=== PATIENT | female | born 1945 | race Caucasian/White ===

== ENCOUNTER 2016-11-25 14:00 | Inpatient (IN) | payer MEDICARE, MEDICAID ==
--- NOTE | 2016-11-25 14:03 | ED Physician Chart ---
Chief Complaint/HPI - Patient Information Date Seen:: 11/25/16 Time Seen:: 14:03 Chief Complaint:: wheezing History of Present Illness:: 71-year-old female with history of dementia, [facility] with acute, moderate, wheezing since this morning. Has associated increased work of breathing and decreased oral intake. History limited patient has underlying dementia cannot provide history History provided by EMS and EMS run sheet Allergies:: Allergies Allergy/AdvReac Type Severity Reaction Status Date / Time No Known Allergies Allergy Verified 08/20/16 19:37 Historian:: Patient Review:: Nurse's Note Reviewed Review of Systems - Review of Systems Other: Complete system review otherwise unremarkable except as noted in history of present illness. Past Medical History - Past Medical History Past Medical History: Asthma/COPD, Dementia Family History: None Social History: Non Smoker, No Alcohol, No Drug Use, Care Facility Surgical History: None Psychiatricy History: None Medication: Reviewed Family Medical History - Family Member Mother History Unknown: Yes Physical Exam - Physical Examination Other:: INITIAL VITAL SIGNS: Reviewed by me GENERAL: Alert and interactive. Slight respiratory distress HEAD: Head is normocephalic and atraumatic EYES: EOMI. PERRL. No scleral icterus. No conjunctival injection ENT: Moist mucous membranes. NECK: Supple. No masses. Full range of motion RESPIRATORY: Slightly tachypneic with bilateral expiratory wheezing. CV: Regular rate and rhythm. No murmurs, rubs, or gallops ABDOMEN: Soft, non-distended, non-tender. No guarding. No rebound. No masses. EXTREMITIES: No deformity. No cyanosis. No edema. SKIN: Warm and dry. No obvious rashes. NEUROLOGIC: Alert and oriented. Face is symmetric. Speech is normal. Moves all extremities equally. Motor and sensory distally intact. ED Septic Shock - . Is Septic Shock (SBP<90, OR Lactate>4 mmol\L) present?: No Reassessment (Disposition) - Reassessment Reassessment:: Patient having acute asthma exacerbation. Gave IV Solu-Medrol and breathing treatment. Covered with the prophylactic antibiotics. Also has failure to thrive. Underlying dementia and makes it difficult to assess the patient completely. Discussed case with admitting physician who will admit the patient for further workup and treatment. Reassessment Condition:: Improved - Diagnosis Diagnosis:: Acute wheezing and shortness of breath due to asthma exacerbation Acute failure to thrive - Patient Disposition Discharge/Transfer:: Acute Care w/in this hosp Admitted to:: Med/Surg Admitting Medical Physician:: Reggie Ann Time:: 15:51 Condition at Disposition:: Stable
[2016-11-25] MEDS ORDERED: cefTRIAXone 1 GM in Sodium Chloride 0.9% 50 ML IV ONE (14:09)
[2016-11-25] MEDS ORDERED: Albuterol/Ipratropium Neb 3 ML AERS HHN ONE ×2 (14:09→14:50)
--- NOTE | 2016-11-25 14:38 | Diagnostic Imaging Report ---
CHEST X-RAY: AP view INDICATION: Shortness of breath, wheezing COMPARISON: None FINDINGS: Exam is limited as patient's head obscures the upper hemithorax. No focal consolidation or pleural effusions. Heart size normal. Atherosclerosis is noted. Spinal scoliosis is noted with degenerative changes of the spine noted. IMPRESSION: Limited exam as patient's head obscures the upper hemithorax. Otherwise no focal consolidation identified. Atherosclerotic vascular disease. Degenerative changes of the spine with scoliosis.
[2016-11-25 14:58] LABS: % BASOPHILS 0.3 % (0.0-2.0); % EOSINOPHILS 3.4 % (0.0-5.0); % LYMPHOCYTES 23.5 % (20.0-50.0); % MONOCYTES 7.7 % (2.0-10.0); % NEUTROPHILS 65.1 % (40.0-80.0); MEAN CELL VOLUME 86.1 fl (81-100); MEAN CORPUSCULAR HEMOGLOBIN 28.9 pg (27.0-31.0); MEAN CORPUSCULAR HGB CONC 33.6 pg (28.0-36.0); MEAN PLATELET VOLUME 7.4 fl; NEUTROPHILE ABSOLUTE 4.3 Th/cmm (1.8-8.0); PLATELET COUNT 274 Th/cmm (150-400); RED BLOOD COUNT 4.85 Mil/cmm (3.80-5.20); RED CELL DISTRIBUTION WIDTH 14.5 % (11.5-20.0)
[2016-11-25 15:02] LABS: INR 0.92 (0.5-1.4); PROTHROMBIN TIME (TEST) 9.6 SECONDS (9.5-11.5)
[2016-11-25 15:08] LABS: ALB/GLOB RATIO 1.3 (1.0-1.8); ALKALINE PHOSPHATASE 95 U/L (34-104); ANION GAP 7.9 (7.0-16.0); BILIRUBIN,TOTAL 0.3 mg/dL (0.3-1.0); BUN - UREA NITROGEN 17 mg/dL (7-25); BUN/CREATININE RATIO 21.3; CALCIUM SERUM 10.3 mg/dL (8.6-10.3); CARBON DIOXIDE 29.2 mEq/L (21.0-31.0); CHLORIDE 103 mEq/L (98-107); CREATININE - SERUM 0.8 mg/dL (0.6-1.2); GLUCOSE 139 mg/dL (70-105); POTASSIUM SERUM 4.1 mEq/L (3.5-5.1); SGOT 21 U/L (13-39); SGPT/ALT 12 U/L (7-52); SODIUM SERUM 136 mEq/L (136-145); WHITE BLOOD COUNT 6.5 Th/cmm (4.8-10.8)
[2016-11-25 15:09] LABS: HEMATOCRIT 41.7 % (35.0-45.0)
[2016-11-25 15:36] LABS: URINE BACTERIA FEW /hpf (NONE SEEN); URINE BILIRUBIN NEGATIVE (NEGATIVE); URINE BLOOD NEGATIVE (NEGATIVE); URINE COLOR YELLOW; URINE EPITHELIAL CELLS RARE /lpf (FEW); URINE GLUCOSE (UA) NEGATIVE (NEGATIVE); URINE KETONE NEGATIVE (NEGATIVE); URINE PH 7.5; URINE PROTEIN NEGATIVE (NEGATIVE); URINE RBC NONE SEEN /hpf (0-5); URINE UROBILINOGEN 0.2 E.U./dL (0.2 - 1.0); URINE WBC 0-2 /hpf (0-5)
[2016-11-25] MEDS ORDERED: Maalox 30 mL Cup PO PRN (19:27)
[2016-11-25] MEDS ORDERED: Magnesium Hydroxide (MOM) 30 mL UDC PO PRN (19:27)
[2016-11-25] MEDS ORDERED: guaiFENesin 200 MG/10 ML UDC PO PRN (19:28)
--- NOTE | 2016-11-25 19:35 | Admit Criteria Form ---
Admit Criteria Forms - Admit Criteria Diagnosis: ASTHMA Clinical Indications for Admission to Inpatient Care (Place 'X' for any and all applicable criteria): Admission is indicated for ANY ONE of the following (1)(2)(3)(4)(5): [ ]I. Absent or markedly diminished breath sounds (silent chest) [ ]II. Oxygen saturation < 92% [ ]III. PaCO2 = / > 42 mm Hg (5.6 kPa) [ ]IV. Peak expiratory flow rate < 40% of predicted or personal best after treatment. [ ]V. Peak expiratory flow rate < 33% of predicted or personal before after treatment [ ]. Change in mental status [ ]VII. Ventilatory support required [ ]VIII. PaO2 < 60 mm Hg (8.0 kPa) [ ]IX. Cyanosis [ ]X. Cardiac dysrhythmia (e.g., bradycardia) [ ]XI. Hemodynamic instability [ ]XII. Radiographic evidence of complication requiring inpatient treatment (e.g., pneumonia, pneumothorax) [X]XIII. Inpatient admission required rather than observation care (also use Asthma: Observation Care guideline as appropriate) because of ANY ONE of the following: [X]a) Respiratory finding that is severe or persistent (eg, dyspnea, tachypnea, accessory muscle use) [ ]b) Airflow measurements less than 60% of predicted or personal best that persist (e.g., over 24 hours) or worsen despite treatments [ ]c) Supplemental oxygen or respiratory treatments for over 24 hours that are performable only in acute inpatient setting [ ]d) Other condition, treatment or monitoring requiring inpatient admission. Extended stay beyond goal length of stay may be needed for (26)(27)(28): [ ]a) Severe respiratory failure (23) (29) (30) [ ]b) Secondary causes and complications (25) [ ]c) Status asthmaticus [ ]d) Chronic obstructive asthma [ ]e) Older patients (29) [ ]f) Slow resolution [ ]g) Clinically significant exacerbation of comorbidities (eg, prema. heart failure, atrial fibrillation) The original [employer] content created by [employer] has been revised. The portions of the content which have been revised are identified through the use of italic text or in bold, and [employer] has neither reviewed nor approved the modified material. All other unmodified content is copyright [facility] Please see references footnoted in the original [facility] edition 2016 Admit Criteria Met?: Yes
[2016-11-25] MEDS: methylPREDNISolone SS 40 mg Vial IVP SCH (21:00)
[2016-11-25] MEDS: Ipratropium Neb 0.5 mg/2.5 mL UD HHN SCH (21:16)
[2016-11-25] MEDS: Albuterol Nebulizer 2.5mg/3mL HHN SCH (21:16)
[2016-11-25] MEDS: D5-0.45NS 1,000 ML IV SCH (21:26)
[2016-11-26] MEDS: methylPREDNISolone SS 40 mg Vial IVP SCH (07:55)
[2016-11-26] MEDS: Ipratropium Neb 0.5 mg/2.5 mL UD HHN SCH ×4 (08:35→19:18)
[2016-11-26] MEDS: Albuterol Nebulizer 2.5mg/3mL HHN SCH ×4 (08:35→19:18)
--- NOTE | 2016-11-26 09:19 | Diagnostic Imaging Report ---
CHEST X-RAY: AP view INDICATION: Shortness of breath COMPARISON: Chest x-ray 11/25/2016 FINDINGS: Chronic lung changes are seen with no focal consolidation or effusions. Heart size is normal. Tortuous senescent aorta is noted with atherosclerosis. Degenerative changes of the spine are noted. IMPRESSION: Chronic lung changes with possible COPD. No focal consolidation identified. Tortuous senescent aorta with atherosclerotic vascular disease.
[2016-11-26] MEDS: D5-0.45NS 1,000 ML IV SCH (09:33)
[2016-11-26] MEDS: Multivitamin w/ Minerals Tab PO SCH (09:33)
--- NOTE | 2016-11-26 17:02 | History & Physical ---
CHIEF COMPLAINT: Wheezing and shortness of breath. HISTORY OF PRESENT ILLNESS: This is a 71-year-old female with history of osteoarthritis, osteoporosis, bilateral hearing deficit was admitted from nursing facility secondary to wheezing for 1 day and increasing shortness of breath, using her ____ muscle. The patient was seen through the Emergency Room. PAST MEDICAL HISTORY: As mentioned in history present illness. PAST SURGICAL HISTORY: Denies surgeries in the past. ALLERGIES: No known drug allergies. MEDICATIONS: The patient is on Tylenol, ____, albuterol, Namenda, meclizine, Zofran. FAMILY HISTORY: Noncontributory. SOCIAL HISTORY: Nonsmoker, nondrinker. [place] The patient has 2 daughters. REVIEW OF SYSTEMS: GENERAL: Complains of not feeling well. HEENT: No blurred vision. LUNGS: ____ COPD. Chest x-ray was suggestive, history of asthma. HEART: No hypertension or coronary artery disease. ABDOMEN: No nausea, vomiting, abdominal pain. GENITOURINARY: The patient denies increased dysuria. NEUROLOGIC: No headaches or seizure. PSYCHIATRIC: As stated above. PHYSICAL EXAMINATION: VITAL SIGNS: Blood pressure 120/76, respirations 18, pulse 78, ____. GENERAL: This is an elderly female, appears stated age, mildly obese. NECK: Supple. No mass. LUNGS: Equal breath sounds, otherwise clear to auscultation. HEART: Regular rate and rhythm with systolic ejection murmur. ABDOMEN: Soft, nontender. EXTREMITIES: Positive excoriations. NEUROLOGIC: Limited. LABORATORY DATA: WBC was 6.5, hemoglobin 14, platelets 274. INR 0.9. Sodium 136, potassium ____, ____, creatinine 0.7, blood sugar 139. UA is negative. ASSESSMENT AND PLAN: Acute asthma exacerbation, acute chronic obstructive pulmonary disease exacerbation, acute bronchitis, bilateral hearing deficit, osteoarthritis, osteoporosis, dementia, obesity. We will continue the patient on IV antibiotics and also continue oxygen and bronchodilator treatment. I will review chest x-ray. We will send blood cultures as well as sputum ____ and C and S. We will continue and monitor the patient closely. JOB# [id number]
[2016-11-27] MEDS: D5-0.45NS 1,000 ML IV SCH ×2 (06:44→21:56)
[2016-11-27 07:06] LABS: HEMOGLOBIN 13.1 gm/dL (11.7-16.1); MEAN CELL VOLUME 84.6 fl (81-100); MEAN CORPUSCULAR HEMOGLOBIN 29.8 pg (27.0-31.0); MEAN CORPUSCULAR HGB CONC 35.2 pg (28.0-36.0); MEAN PLATELET VOLUME 7.8 fl; PLATELET COUNT 261 Th/cmm (150-400); RED BLOOD COUNT 4.41 Mil/cmm (3.80-5.20); RED CELL DISTRIBUTION WIDTH 14.6 % (11.5-20.0)
[2016-11-27 07:20] LABS: ANION GAP 6.4 (7.0-16.0); BUN - UREA NITROGEN 25 mg/dL (7-25); BUN/CREATININE RATIO 41.7; CALCIUM SERUM 10.3 mg/dL (8.6-10.3); CHLORIDE 103 mEq/L (98-107); CREATININE - SERUM 0.6 mg/dL (0.6-1.2); GLUCOSE 164 mg/dL (70-105); MAGNESIUM 1.7 mg/dL (1.9-2.7); POTASSIUM SERUM 4.4 mEq/L (3.5-5.1); SODIUM SERUM 132 mEq/L (136-145)
[2016-11-27 07:55] LABS: HEMATOCRIT 37.3 % (35.0-45.0); WHITE BLOOD COUNT 16.9 Th/cmm (4.8-10.8)
[2016-11-27 08:00] LABS: TSH 0.12 uIU/ml (0.34-5.60)
[2016-11-27] MEDS: Multivitamin w/ Minerals Tab PO SCH (08:31)
[2016-11-27 08:40] LABS: BAND NEUTROPHILE 4 % (0-10); NEUTROPHILS 92 % (40-80); PLATELET ESTIMATE ADEQUATE (NORMAL); PLATELET MORPHOLOGY NORMAL (NORMAL); TOTAL CELLS COUNTED 100
--- NOTE | 2016-11-27 08:52 | Diagnostic Imaging Report ---
Portable chest x-ray HISTORY: Pneumonia Compared with prior exam of November 26, 2016, no focal pulmonary processes are seen. Atherosclerotic calcification seen in the aorta. No hilar or mediastinal abnormalities. Scoliosis and degenerative changes noted to the spine. IMPRESSION: 1. No acute focal pulmonary processes 2. Atherosclerotic vascular changes
[2016-11-27] MEDS: Albuterol Nebulizer 2.5mg/3mL HHN SCH ×4 (09:11→19:48)
[2016-11-27] MEDS: Ipratropium Neb 0.5 mg/2.5 mL UD HHN SCH ×4 (09:12→19:48)
--- NOTE | 2016-11-27 15:13 | Internal Medicine Prog Note ---
Internal Medicine Subjective - Subjective Patient seen and examined:: with staff, chart reviewed Patient is:: awake, verbal, interactive Patient Complaints of:: congestion Per staff patient is:: no episodes of fall, eating well Internal Medicine Objective - Results Result Diagrams: 11/27/16 06:20 11/27/16 06:20 Recent Labs: Laboratory Last Values WBC 16.9 Th/cmm (4.8-10.8) H D 11/27/16 06:20 RBC 4.41 Mil/cmm (3.80-5.20) 11/27/16 06:20 Hgb 13.1 gm/dL (11.7-16.1) 11/27/16 06:20 Hct 37.3 % (35.0-45.0) D 11/27/16 06:20 MCV 84.6 fl (81-100) 11/27/16 06:20 MCH 29.8 pg (27.0-31.0) 11/27/16 06:20 MCHC Differential 35.2 pg (28.0-36.0) 11/27/16 06:20 RDW 14.6 % (11.5-20.0) 11/27/16 06:20 Plt Count 261 Th/cmm (150-400) 11/27/16 06:20 MPV 7.8 fl 11/27/16 06:20 Neutrophils % 65.1 % (40.0-80.0) 11/25/16 14:33 Band Neutrophils % 4 % (0-10) 11/27/16 06:20 Lymphocytes % 23.5 % (20.0-50.0) 11/25/16 14:33 Monocytes % 7.7 % (2.0-10.0) 11/25/16 14:33 Eosinophils % 3.4 % (0.0-5.0) 11/25/16 14:33 Basophils % 0.3 % (0.0-2.0) 11/25/16 14:33 Neutrophils (Manual) 92 % (40-80) H 11/27/16 06:20 Lymphocytes 3 % (20-50) L 11/27/16 06:20 Monocytes 1 % (2-10) L 11/27/16 06:20 Platelet Estimate ADEQUATE (NORMAL) 11/27/16 06:20 Platelet Morphology NORMAL (NORMAL) 11/27/16 06:20 RBC Morph Micro Appear NORMAL (NORMAL) 11/27/16 06:20 PT 9.6 SECONDS (9.5-11.5) 11/25/16 14:33 INR 0.92 (0.5-1.4) 11/25/16 14:33 PTT (Actin FS) 20.7 SECONDS (26.0-38.0) L 11/25/16 14:33 Sodium 132 mEq/L (136-145) L 11/27/16 06:20 Potassium 4.4 mEq/L (3.5-5.1) 11/27/16 06:20 Chloride 103 mEq/L (98-107) 11/27/16 06:20 Carbon Dioxide 27.0 mEq/L (21.0-31.0) 11/27/16 06:20 Anion Gap 6.4 (7.0-16.0) L 11/27/16 06:20 BUN 25 mg/dL (7-25) 11/27/16 06:20 Creatinine 0.6 mg/dL (0.6-1.2) 11/27/16 06:20 Est GFR ( Amer) TNP 11/27/16 06:20 Est GFR (Non-Af Amer) TNP 11/27/16 06:20 BUN/Creatinine Ratio 41.7 11/27/16 06:20 Glucose 164 mg/dL (70-105) H 11/27/16 06:20 Whole Bld Lactic Acid 1.87 mmol/L (0.60-1.99) 11/25/16 14:33 Calcium 10.3 mg/dL (8.6-10.3) 11/27/16 06:20 Magnesium 1.7 mg/dL (1.9-2.7) L 11/27/16 06:20 Total Bilirubin 0.3 mg/dL (0.3-1.0) 11/25/16 14:33 AST 21 U/L (13-39) 11/25/16 14:33 ALT 12 U/L (7-52) 11/25/16 14:33 Alkaline Phosphatase 95 U/L (34-104) 11/25/16 14:33 Ammonia 37 umol/L (16-53) 11/27/16 06:20 Creatine Kinase 27 U/L (30-223) L 11/25/16 14:33 B-Natriuretic Peptide 152.0 pg/mL (5.0-100.0) H 11/27/16 06:20 Total Protein 6.8 gm/dL (6.0-8.3) 11/25/16 14:33 Albumin 3.9 gm/dL (3.7-5.3) 11/25/16 14:33 Globulin 2.9 gm/dL 11/25/16 14:33 Albumin/Globulin Ratio 1.3 (1.0-1.8) 11/25/16 14:33 TSH 0.12 uIU/ml (0.34-5.60) L 11/27/16 06:20 Urine Source CATH 11/25/16 14:25 Urine Color YELLOW 11/25/16 14:25 Urine Clarity CLEAR (CLEAR) 11/25/16 14:25 Urine pH 7.5 11/25/16 14:25 Ur Specific Ethel 1.015 (1.005-1.030) 11/25/16 14:25 Urine Protein NEGATIVE mg/dL (NEGATIVE) 11/25/16 14:25 Urine Glucose (UA) NEGATIVE mg/dL (NEGATIVE) 11/25/16 14:25 Urine Ketones NEGATIVE mg/dL (NEGATIVE) 11/25/16 14:25 Urine Blood NEGATIVE (NEGATIVE) 11/25/16 14:25 Urine Nitrate NEGATIVE (NEGATIVE) 11/25/16 14:25 Urine Bilirubin NEGATIVE (NEGATIVE) 11/25/16 14:25 Urine Urobilinogen 0.2 E.U./dL (0.2 - 1.0) 11/25/16 14:25 Ur Leukocyte Esterase NEGATIVE (NEGATIVE) 11/25/16 14:25 Urine RBC NONE SEEN /hpf (0-5) 11/25/16 14:25 Urine WBC 0-2 /hpf (0-5) 11/25/16 14:25 Ur Epithelial Cells RARE /lpf (FEW) 11/25/16 14:25 Urine Bacteria FEW /hpf (NONE SEEN) 11/25/16 14:25 - Physical Exam Vitals and I&O: Vital Signs Temp 97.1 F 11/27/16 12:17 Pulse 73 11/27/16 14:47 Resp 18 11/27/16 14:47 BP 117/71 11/27/16 12:17 Pulse Ox 94 11/27/16 14:47 Intake & Output 11/26/16 11/27/16 11/27/16 18:59 06:59 18:59 Intake Total 958.75 1150 Balance 958.75 1150 Intake: Intake, IV Amount 958.75 1050 Cefepime 1 gm In Dextrose 50 50 5% 50 ml @ 100 mls/hr IV Q12H [facility] Rx#:[id number] D5-0.45NS 1,000 ml @ 75 908.75 1000 mls/hr IV .[id number] [facility] Rx #:[id number] Oral 100 Other: Stool Characteristics Soft Soft Active Medications: Current Medications Acetaminophen (Tylenol) 650 mg PO Q4HR PRN PRN Reason: Pain or Fever >101 Stop: 01/24/17 19:27 Al Hydrox/Mg Hydrox/Simethicone (Maalox) 30 ml PO Q4H PRN PRN Reason: GI DISTRESS Albuterol Sulfate (Albuterol 2.5mg/3ml Neb Ud) 2.5 mg HHN QIDRT [facility] Stop: 01/25/17 10:59 Last Admin: 11/27/16 14:47 Dose: 2.5 mg Citalopram Hydrobromide (Celexa) 20 mg PO DAILY CHITO PRN Reason: Protocol Stop: 01/25/17 08:59 Last Admin: 11/27/16 08:31 Dose: 20 mg Donepezil HCl (Aricept) 5 mg PO HS [facility] Stop: 01/24/17 20:59 Last Admin: 11/26/16 21:26 Dose: 5 mg Guaifenesin (Robitussin) 200 mg PO Q4HR PRN PRN Reason: Cough or Congestion Stop: 01/24/17 19:27 Heparin Sodium (Porcine) (Heparin) 5,000 units SUBQ Q12HR [facility] Stop: 01/24/17 20:59 Last Admin: 11/27/16 08:30 Dose: 5,000 units Cefepime HCl 1 gm/ Dextrose 50 mls @ 100 mls/hr IV Q12H [facility] Stop: 01/24/17 19:29 Last Admin: 11/27/16 06:43 Dose: 100 mls/hr Dextrose/Sodium Chloride (D5-0.45ns) 1,000 mls @ 75 mls/hr IV .[id number] [facility] Stop: 01/24/17 19:29 Last Admin: 11/27/16 06:44 Dose: 75 mls/hr Ipratropium [place] (Atrovent Neb 0.5mg/2.5ml) 0.5 mg HHN QIDRT [facility] Stop: 01/25/17 10:59 Last Admin: 11/27/16 14:47 Dose: 0.5 mg Magnesium Hydroxide (Milk Of Magnesia) 30 ml PO DAILY PRN PRN Reason: Constipation Stop: 01/24/17 19:26 Meclizine HCl (Antivert) 25 mg PO DAILY PRN PRN Reason: Nausea / Vomiting Stop: 01/24/17 19:27 Memantine (Namenda) 5 mg PO DAILY [facility] Stop: 01/25/17 08:59 Last Admin: 11/27/16 08:31 Dose: 5 mg Ondansetron HCl (Zofran) 4 mg IV Q8H PRN PRN Reason: Nausea / Vomiting Stop: 01/24/17 19:27 General: alert HEENT: NC/AT, PERRLA Neck: Supple, No JVD Lungs: congested, rales Cardiovascular: RRR, Normal S1, Normal S2 Abdomen: soft non-tender, globular Extremities: excoriation Neurological: no change Internal Medicine Assmt/Plan - Assessment Assessment: acute asthma exac acute bronchitis dementia obesity leukocytosis hyponatremia - Plan Plan: cont on iv abx monitor wbc o2 bronchodilator dw rn Nutritional Asmnt/Malnutr-PDOC - Dietary Evaluation Malnutrition Findings (Please click <Entered> for more info): Nutritional Asmnt/Malnutrition Start: 11/26/16 13: 03 Text: Status: Complete Freq: Document 11/26/16 13:03 GSUN (Rec: 11/26/16 13:30 GSUN [email or web address]) Nutritional Asmnt/Malnutrition Patient General Information Nutritional Screening High Risk Screening Diagnosis ER: acute asthma exacerbation, acute failrue to thrive Pertinent Medical Hx/Surgical Hx ER: dementia, asthma/COPD Subjective Information 71year old female from SNF. Visited pt with daughter at bedside. Pt was able to answer simple questiosn with forgetfulness noted. Per ER notes, pt dx FTT and noted with decreased oral intake. CBW 143.7lb. Daughter reported pt usually with good appetite , possibly even gained weight since adm to SNF, unsure of CBW, aware that pt admitted due to decreased oral. Re- visited pt during lunch time, observed more than half meal untouched, asked pt, pt stated "I'm done." Current Diet Order/ Nutrition Support [facility] soft ground Pertinent Medications Maalox, D5, MOM, Solu-Medrol, Zofran Pertinent Labs 11/25: glucose 139H Nutritional Hx/Data Height 1.68 m Height (Calculated Centimeters) 167.6 Current Weight (lbs) 65.181 kg Weight (Calculated Kilograms) 65.2 Weight (Calculated Grams) 99484.2 [place] Body Weight 130 Weight Status Approriate GI Symptoms Usual diet at home Shawanda Soria: [facility] soft diet Skin Integrity/Comment: Dell 15. Skin intact. Current %PO Poor (25-49%) Estimated Nutritional Goals BEE in Kcals: Using Current wt Calories/Kcals/Kg CBW 143.7lb/65.3kg Kcals Calculated 1959kcal (30kcal/kg) Protein: Using Current wt Protein Calculated 65-78g (1-1.2g/kg) Fluid: ml 1959ml (1ml/kcal) Nutritional Problem 1. Problem Problem Inadequate oral food beverage intake related to Etiology possibly cognition, possibly lost of appetite, ER dx. FTT aeb Signs/Symptoms: ER noted decreased PO at SNF, observed lunch more than half untouched Intervention/Recommendation Comments 1. Continue with [facility] soft ground diet. Dx. FTT and poor PO intake noted, will monitor. Expected Outcomes/Goals Expected Outcomes/Goals 1. PO intake to meet at least 100% of nutritional needs, dx. FTT.
--- NOTE | 2016-11-28 04:57 | Consultation ---
The patient was seen, chart reviewed, and discussed with staff. HISTORY OF PRESENT ILLNESS: The patient is a 71-year-old female with a history of depression with psychosis and dementia, Alzheimer's type, known to myself for the past several years, currently admitted to the medical floor with underlying infection with elevated white count of 16.9. The patient was able to recognize me when I walked in the room today. She said she is feeling tired and still having some episodes where she feels anxious and depressed. The patient has been cooperative with staff. The patient has not been agitated. The patient is taking her medications. PAST PSYCHIATRIC HISTORY: Multiple hospitalizations, chronic history of depression. PAST MEDICAL HISTORY: As per Dr. Ann. PSYCHOSOCIAL HISTORY: The patient resides in [facility], and she requires complete care. Her daughter is usually involved and supportive. MENTAL STATUS EXAMINATION: The patient is in bed, oriented to person, knew she was in the hospital, and she is oriented to approximate time. Her speech is fluent, not pressured. Affect appears to be somewhat anxious and depressed. No auditory or visual hallucinations. No suicidal thoughts, limited insight. ASSESSMENT: Major depressive disorder, recurrent, moderate dementia, Alzheimer's type. PLAN: We will continue Celexa 20 mg daily. Continue supportive measures. Increase Aricept to 10 mg p.o. at bedtime. Use Ativan 0.5 mg p.o. b.i.d. p.r.n. anxiety. We will follow the patient while in the hospital. Thank you for the consultation. [facility]# [id number]
[2016-11-28 05:34] LABS: HEMATOCRIT 34.8 % (35.0-45.0); HEMOGLOBIN 11.9 gm/dL (11.7-16.1); MEAN CELL VOLUME 86.4 fl (81-100); MEAN CORPUSCULAR HEMOGLOBIN 29.5 pg (27.0-31.0); MEAN CORPUSCULAR HGB CONC 34.2 pg (28.0-36.0); MEAN PLATELET VOLUME 7.1 fl; PLATELET COUNT 239 Th/cmm (150-400); RED BLOOD COUNT 4.03 Mil/cmm (3.80-5.20); RED CELL DISTRIBUTION WIDTH 14.8 % (11.5-20.0)
[2016-11-28 05:37] LABS: WHITE BLOOD COUNT 11.9 Th/cmm (4.8-10.8)
[2016-11-28 06:25] LABS: NEUTROPHILS 92 % (40-80); PLATELET ESTIMATE ADEQUATE (NORMAL); TOTAL CELLS COUNTED 100
[2016-11-28] MEDS: Albuterol Nebulizer 2.5mg/3mL HHN SCH ×3 (07:05→15:11)
[2016-11-28] MEDS: Ipratropium Neb 0.5 mg/2.5 mL UD HHN SCH ×3 (07:05→15:11)
[2016-11-28] MEDS: Multivitamin w/ Minerals Tab PO SCH (08:46)
[2016-11-28 14:20] LABS: FOLIC ACID 11.2 ng/mL (>3.0)
--- NOTE | 2016-11-29 04:13 | Progress Notes ---
The patient was seen, discussed with staff, chart is reviewed. Still forgetful and confused though she was in hospital, thought she was 89 years old, the patient is slightly guarded, her Zyprexa was held upon admission to minimize any sedation. The patient is still with sad facial expression and depressive symptoms. We will increase Namenda to 5 mg p.o. b.i.d. We will continue Celexa 20 mg daily, restart Zyprexa at a smaller dose 2.5 mg p.o. at bedtime. The patient appears to be somewhat more paranoid and guarded. [facility]# [id number]
--- NOTE | 2017-02-02 21:29 | Discharge Summary ---
DATE OF DISCHARGE: 11/28/2016 CHIEF COMPLAINT: Wheezing and shortness of breath. FINAL DIAGNOSES: Acute asthma exacerbation, acute chronic obstructive pulmonary disease exacerbation, acute bronchitis ____ hearing deficit, osteoarthritis, osteoporosis, dementia and obesity. HISTORYOF PRESENT ILLNESS: This is a 72-year-old female with history of osteoarthritis, osteoporosis, hearing deficit who was admitted from nursing facility secondary to increased shortness of breath. The patient was seen in the Emergency Room and admitted for further management. PHYSICAL EXAMINATION: VITAL SIGNS: Blood pressure 112/64, respirations 18, pulse 80, temperature 98.6. GENERAL: Elderly female, appears her stated age. NECK: Supple. LUNGS: Equal breath sounds, few rhonchi. HEART: Regular rate and rhythm, systolic ejection murmur. ABDOMEN: Soft, nontender. EXTREMITIES: Positive excoriations. HOSPITAL COURSE: The patient was admitted to medical floor and continued on IV hydration and IV antibiotic ____ IV steroids. The patient's condition did improve. X-ray did improve. The patient was also referred to Psychiatry for further adjustment of her psychotropic medication. CONDITION ON DISCHARGE: Fair. DISCHARGE INSTRUCTIONS: The patient is to continue on oral antibiotic regimen as well as steroids in the nursing facility. JOB# [id number]
== END 2016-11-28 19:00 | DRG 872 ==
LOC: ER 14:00 → MSI 15:53
PROVIDERS: ADMIT Internal Medicine; ATTEND Internal Medicine
DX: A41.9 Sepsis, unspecified organism (principal); J44.0 Chronic obstructive pulmonary disease with (acute) lower respiratory infection; J45.901 Unspecified asthma with (acute) exacerbation; E87.1 Hypo-osmolality and hyponatremia; G30.9 Alzheimer's disease, unspecified; F33.1 Major depressive disorder, recurrent, moderate; F02.80 Dementia in other diseases classified elsewhere, unspecified severity, without behavioral disturbance, psychotic disturbance, mood disturbance, and anxiety; J44.1 Chronic obstructive pulmonary disease with (acute) exacerbation; J20.9 Acute bronchitis, unspecified; M19.90 Unspecified osteoarthritis, unspecified site; M81.0 Age-related osteoporosis without current pathological fracture; E66.9 Obesity, unspecified; R62.7 Adult failure to thrive; F29 Unspecified psychosis not due to a substance or known physiological condition; Z68.22 Body mass index [BMI] 22.0-22.9, adult
CPT/HCPCS: 36415-UA; 71010-TC; 80048-TC; 80053-TC; 81001-TC; 82140-TC; 82550-TC; 82607-90; 82746-90; 83605; 83735-TC; 83880-TC; 84443-TC; 85007-TC; 85025-TC; 85027-TC; 85610-TC; 85730-TC; 87070; 90779; 93005; 94640; 94760; 96375; J0692; J0696; J1644; J2920; J2930; J7613; Z7610

== ENCOUNTER 2017-04-06 08:34 | Emergency (ER) | payer MEDICARE, MEDICAID ==
--- NOTE | 2017-04-06 08:55 | ED Physician Chart ---
Chief Complaint/HPI - Patient Information Date Seen:: 04/06/17 Time Seen:: 08:45 Chief Complaint:: L forehead laceration. History of Present Illness:: Brought in by ambulance from nursing facility because pt sustained the above mentioned injury when she fell at about 4 am today. Pt c/o L frontal headahce and posterior neck pain. Pt states that she was getting up to go to the bathroom. She slipped and fell. No LOC. Pt denies any other bodily injury or pain. Pt has dementia and is not fully cooperative; thus, H & P are limited. Info is primarily from review of transfer documents. Last tetanus immunization is unknown. Allergies:: Allergies Allergy/AdvReac Type Severity Reaction Status Date / Time No Known Allergies Allergy Verified 08/20/16 19:37 Vitals:: see Nurse Note. Historian:: Patient, Medical Records (from transferring facility.) Family MD/PCP:: Dr. Storey LMP:: Postmenopausal. Review:: Nurse's Note Reviewed, Transfer documents Reviewed Review of Systems - Review of Systems General/Constitutional: Other (Pt does not cooperate fully for ROS.) Head: Headache Cardio Vascular: No chest pain Pulmonary: No SOB Musculoskeletal: No back pain, Other (posterior neck pain.) Past Medical History - Past Medical History Past Medical History: Asthma/COPD, PUD/GERD, Arthritis, Dementia (with Alzheimer 's Disease.), Other (Osteoporosis, chronic anemia) Family History: Other (Pt does not cooperate to provide info on FHx.) Social History: Care Facility, Other (Pt does not cooperate to ) Surgical History: other (Pt does not cooperate to provide info on Surgical Hx.) Psychiatricy History: Depression, Dementia Medication: Reviewed Family Medical History - Family Member Mother History Unknown: Yes Physical Exam - Physical Examination General/Constitutional: Awake, Well-developed, well-nourished, Alert, No distress, Non-toxic appearing Other Gen/Cons comments:: Breathes comfortably, speaks clearly, but is not fully cooperative. Other Head comments:: There is an approx. 2.5 cm transverse superficial laceration noticed at L forehead. No skull deformity or bony tapering detected. No active bleeding. Eyes: Lids, conjuctiva normal, PERRL, EOMI Skin: No rash, No ecchymosis, Well hydrated, No lymphadenopathy Other Skin comments:: see also Head exam. ENMT: External ears, nose nl, TM canals nl, Nasal exam nl, Oropharynx nl Other ENMT comments:: No hemoptympanus Neck: No JVD, No nuchal rigidity, No mass, No stridor Other Neck comments:: Mild tenderness at mid posterior aspect. Neck is supple. No gross deformity, erythema, ecchymosis or open wound. Respiratory: Nl effort/Exclusion, Clear to Auscultation, No Wheeze/Rhonchi/Rales Cardio Vascular: RRR, No murmur, gallop, rubs GI: No tenderness/rebounding/guarding, No organomegaly, No hernia, Normal BS's, Nondistended, No mass/bruits Other GI comments:: There is a well healed midline longitudinal surgical scar at upper abdomen above the umbilicus. : No CVA tenderness Extremities: No edema Other Extremities comments:: Both hips are nontender with good ROM. No leg length discrepancy. Pt can medially and laterally rotate both hips without difficulty. Neuro/Psych: Alert/oriented (knows her name and that she is in an ER.), Mood normal Other Neuro/Psych comments:: Spontaneous movements noticed in all 4 extremities. Pt does not cooperate for full neurological exam. Misc: normal gait, Normal back, No paraspinal tenderness Labs/Radiology/EKG Results - Lab Results Results: Laboratory Tests 04/06/17 04/06/17 04/06/17 09:37 09:37 09:37 WBC 9.6 RBC 4.66 Hgb 14.1 D Hct 41.7 D MCV 89.3 MCH 30.2 MCHC Differential 33.8 RDW 13.5 Plt Count 276 MPV 7.2 Neutrophils % 76.0 Lymphocytes % 14.1 L Monocytes % 7.7 Eosinophils % 1.8 Basophils % 0.4 PT 9.7 INR 0.93 PTT (Actin FS) 25.6 L Sodium 137 Potassium 4.0 Chloride 104 Carbon Dioxide 29.2 Anion Gap 7.8 BUN 23 Creatinine 0.6 Est GFR ( Amer) TNP Est GFR (Non-Af Amer) TNP BUN/Creatinine Ratio 38.3 Glucose 111 H Calcium 10.1 Total Bilirubin 0.4 AST 23 ALT 17 Alkaline Phosphatase 116 H Creatine Kinase 39 Troponin I Total Protein 6.7 Albumin 4.1 Globulin 2.6 Albumin/Globulin Ratio 1.6 04/06/17 09:37 WBC RBC Hgb Hct MCV MCH MCHC Differential RDW Plt Count MPV Neutrophils % Lymphocytes % Monocytes % Eosinophils % Basophils % PT INR PTT (Actin FS) Sodium Potassium Chloride Carbon Dioxide Anion Gap BUN Creatinine Est GFR ( Amer) Est GFR (Non-Af Amer) BUN/Creatinine Ratio Glucose Calcium Total Bilirubin AST ALT Alkaline Phosphatase Creatine Kinase Troponin I 0.01 Total Protein Albumin Globulin Albumin/Globulin Ratio - Radiology Results Results: CT head without contrast: Soft tissue injury of the left forehead. No evidence of an skull fracture. No evidence of an acute intracranial hemorrhage. Mild atrophy. Moderate supratentorial white matter disease which is nonspecific and may be due to chronic microvessel ischemia. Official report per Dr. Shimon Durbin , radiologist. CT cervical spine without contrast: No evidence of an acute fracture. Extensive multilevel degenerative changes. 3 mm posterior translation of the left lateral mass of C1 in relation to C2 which was also seen on prior exam and may be due to chronic degenerative etiology and/or positioning. 3 mm anterolisthesis of C3 on C4 and C7 on T1 likely due to underlying facet arthropathy. Atherosclerotic vascular disease. Heterogeneous thyroid gland. Ultrasound would further clarify. Official report per Dr. Shimon Durbin, radiologist. - EKG Interpretations EKG Time:: 09:10 Rate & Rhythm: NSR with VR 68 Comments:: NSSTT changes. Repeat EKG at 1309 NSR with VR 62. NSSTT changes. ED Septic Shock - . Is Septic Shock (SBP<90, OR Lactate>4 mmol\L) present?: No Reassessment (Disposition) - Reassessment Reassessment:: 1125 Pt has been repeatedly evaluated. Pt overall feels better without subjective complaint. Awaiting head CT report. Laceration repair: L forehead laceration approx. 2.5 cm in length. Pt was preped in usual sterile manner. Wound was cleansed with betadine, then it was well irrigated with sterile normal saline. Wound was explored. No foreign body was found. Wound was well approximated with Dermabond. Pt tolerated the procedure without immediate complication. 1320 Pt has been repeatedly evaluated. Pt remains stable. No new findings. EKG, lab, and CT findings have been reviewed with pt. Management plan has been discussed. Dr. Storey is to be contacted. 1440 Pt remains stable. No headache or neck pain. No chest pain or discomfort. No dyspnea. Case was discussed with Dr. Storey with pertinent H & P, EKG's, CT and lab findings reviewed. He decided that pt is to be transferred back to nursing care facility. He will resume care of pt there. Regarding the incidental findings on thyroid gland on cervical spine CT, he will make sure that pt to have outpatient work up and thyroid sonogram to be done as outpatient. 1448 Pt remains comfortable. Pt requests to be sent back to nursing facility now. Aftercare instructions have been given. Reassessment Condition:: Improved - Diagnosis Diagnosis:: Mechanical fall with cervical strain and L forehead laceration, s/p repair with Dermabond. Incidental findings of heterogenous thyroid gland on cervical CT, pending further outpatient work up per Dr. Storey. Dementia. - Aftercare/Follow up Instructions Aftercare/Follow-Up Instructions:: Refer to Discharge Instructions Notes:: Wear C-collar as directed. Keep L forehead wound clean and dry. May take Tylenol 500 mg tab one tab po q6h prn pain. Head Injury Instructions given. Wound care instructions given. Further care per Dr. Storey in nursing facility. Medication Prescribed:: None - Patient Disposition Discharge/Transfer:: Alf Care - SNF Accepting Physician:: Dr. Storey Transport Method:: BLS Time:: 15:00 Condition at Disposition:: Stable, Improved ED Discharge Plan - Patient Disposition Admit/Discharge/Transfer: Discharge/Transfered to SNF Condition at Disposition: Stable Instructions: Fall Prevention and Home Safety, [id number], Open Wound, Forehead, [id number], Cervical Sprain, [id number]
[2017-04-06 09:58] LABS: % BASOPHILS 0.4 % (0.0-2.0); % EOSINOPHILS 1.8 % (0.0-5.0); % LYMPHOCYTES 14.1 % (20.0-50.0); % MONOCYTES 7.7 % (2.0-10.0); MEAN CELL VOLUME 89.3 fl (81-100); MEAN CORPUSCULAR HEMOGLOBIN 30.2 pg (27.0-31.0); MEAN CORPUSCULAR HGB CONC 33.8 pg (28.0-36.0); MEAN PLATELET VOLUME 7.2 fl; NEUTROPHILE ABSOLUTE 7.3 Th/cmm (1.8-8.0); PLATELET COUNT 276 Th/cmm (150-400); RED BLOOD COUNT 4.66 Mil/cmm (3.80-5.20); RED CELL DISTRIBUTION WIDTH 13.5 % (11.5-20.0); WHITE BLOOD COUNT 9.6 Th/cmm (4.8-10.8)
[2017-04-06 10:02] LABS: HEMATOCRIT 41.7 % (35.0-45.0); HEMOGLOBIN 14.1 gm/dL (11.7-16.1)
[2017-04-06 10:07] LABS: INR 0.93 (0.5-1.4); PROTHROMBIN TIME (TEST) 9.7 SECONDS (9.5-11.5)
[2017-04-06 10:13] LABS: ALB/GLOB RATIO 1.6 (1.0-1.8); ALKALINE PHOSPHATASE 116 U/L (34-104); ANION GAP 7.8 (7.0-16.0); BILIRUBIN,TOTAL 0.4 mg/dL (0.3-1.0); BUN - UREA NITROGEN 23 mg/dL (7-25); BUN/CREATININE RATIO 38.3; CALCIUM SERUM 10.1 mg/dL (8.6-10.3); CARBON DIOXIDE 29.2 mEq/L (21.0-31.0); CHLORIDE 104 mEq/L (98-107); CREATININE - SERUM 0.6 mg/dL (0.6-1.2); GLUCOSE 111 mg/dL (70-105); SGOT 23 U/L (13-39); SGPT/ALT 17 U/L (7-52); SODIUM SERUM 137 mEq/L (136-145)
--- NOTE | 2017-04-06 11:00 | Diagnostic Imaging Report ---
Head CT without intravenous contrast Indication: Trauma Comparison: Head CT on 08/20/2016 Technique: Axial images were obtained from the vertex to the skull base without IV contrast. Coronal reconstructions were made. Total DLP: 640, CTDI33 FINDINGS: Images of the brain obtained without contrast demonstrate is no evidence of an acute hemorrhage. Mild atrophy is noted. Moderate supratentorial white matter disease is noted. The ventricles and basal cisterns are patent. No mass effect or midline shift. No evidence of a skull fracture. Soft tissue injury of the left forehead is noted. The visualized paranasal sinuses are clear. IMPRESSION: Soft tissue injury of the left forehead. No evidence of an skull fracture. No evidence of an acute intracranial hemorrhage. Mild atrophy. Moderate supratentorial white matter disease which is nonspecific and may be due to chronic microvessel ischemia.
--- NOTE | 2017-04-06 11:05 | Diagnostic Imaging Report ---
CT cervical spine without IV contrast HISTORY: CT cervical spine on 08/20/2016 COMPARISON: None Technique: Axial images were obtained from the skull base to the upper thoracic spine without IV contrast. Multiplanar reconstructions were made. Total DLP: 338, CTDI17.4 FINDINGS: Images of the cervical spine obtained without contrast demonstrate no evidence of an acute fracture. Extensive multilevel degenerative changes are seen with multilevel disc space loss of height advanced from C4 through C7. Advanced degenerative changes of the atlantodental articulation is noted. Again seen is 3 mm posterior translation of the left lateral mass of of C1 in relation to C2. There is 2 to 3 mm anterolisthesis of C3 on C4 and C7 on T1 likely due to facet arthropathy. No prevertebral soft tissue swelling. Heterogeneous thyroid gland is noted. Biapical lung scarring is noted. Atherosclerosis is noted. IMPRESSION: No evidence of an acute fracture. Extensive multilevel degenerative changes. 3 mm posterior translation of the left lateral mass of C1 in relation to C2 which was also seen on prior exam and may be due to chronic degenerative etiology and/or positioning. 3 mm anterolisthesis of C3 on C4 and C7 on T1 likely due to underlying facet arthropathy. Atherosclerotic vascular disease. Heterogeneous thyroid gland. Ultrasound would further clarify.
== END 2017-04-06 15:03 ==
LOC: ER 08:34
DX: S01.81XA Laceration without foreign body of other part of head, initial encounter (principal); S16.1XXA Strain of muscle, fascia and tendon at neck level, initial encounter; J45.909 Unspecified asthma, uncomplicated; J44.9 Chronic obstructive pulmonary disease, unspecified; K21.9 Gastro-esophageal reflux disease without esophagitis; W19.XXXA Unspecified fall, initial encounter; Y93.89 Activity, other specified; Y92.89 Other specified places as the place of occurrence of the external cause; Y99.8 Other external cause status
CPT/HCPCS: 12011; 36415-UA; 70450-TC; 72125-TC; 80053-TC; 82550-TC; 84484-TC; 85025-TC; 85610-TC; 93005; Z7610

== ENCOUNTER 2017-09-01 12:39 | Inpatient (IN) | payer MEDICARE, MEDICAID ==
[2017-09-01] MEDS ORDERED: cefTRIAXone 1 GM in Sodium Chloride 0.9% 50 ML IV ONE (13:39)
[2017-09-01] MEDS ORDERED: Acetaminophen 500 MG TAB PO ONE (13:43)
[2017-09-01] MEDS ORDERED: Guaifenesin DM 10 ML UDC PO ONE (13:45)
[2017-09-01 14:08] LABS: MANUAL DIFF REQUIRED? YES; MEAN CORPUSCULAR HEMOGLOBIN 30.5 pg (27.0-31.0)
[2017-09-01 14:12] LABS: HEMOGLOBIN 11.4 gm/dL (12-16); MEAN CORPUSCULAR HGB CONC 34.2 pg (28.0-36.0); MEAN PLATELET VOLUME 6.5 fl; RED BLOOD COUNT 3.74 Mil/cmm (3.80-5.20); RED CELL DISTRIBUTION WIDTH 13.2 % (11.5-20.0)
--- NOTE | 2017-09-01 14:23 | Diagnostic Imaging Report ---
Portable chest x-ray History: Cough The apical regions of the chest are obscured by the patient's overlying head. Allowing for portable technique the heart size is normal. No focal pulmonary parenchymal processes. No hilar or mediastinal abnormalities. Impression: No definite acute abnormalities
[2017-09-01 14:32] LABS: ANION GAP 9.2 (7.0-16.0); BUN - UREA NITROGEN 22 mg/dL (7-25); CALCIUM SERUM 9.4 mg/dL (8.6-10.3); CARBON DIOXIDE 28.6 mEq/L (21.0-31.0); CHLORIDE 99 mEq/L (98-107); CREATININE - SERUM 0.7 mg/dL (0.6-1.2); GLUCOSE 114 mg/dL (70-105); POTASSIUM SERUM 3.8 mEq/L (3.5-5.1); SODIUM SERUM 133 mEq/L (136-145)
[2017-09-01 14:42] LABS: WHITE BLOOD COUNT 21.6 Th/cmm (4.8-10.8)
[2017-09-01 14:43] LABS: HEMATOCRIT 33.3 % (41.0-60); PLATELET COUNT 471 Th/cmm (150-400)
[2017-09-01] MEDS ORDERED: Acetaminophen 500 MG TAB ONE (15:11)
[2017-09-01] MEDS ORDERED: Guaifenesin DM 10 ML UDC ONE (15:12)
[2017-09-01] MEDS ORDERED: Albuterol Nebulizer 2.5mg/3mL HHN PRN (15:28)
[2017-09-01] MEDS ORDERED: Mag Sulfate 2gm/50mL Premix 2 GM/50 ML BAG IV ONE ×2 (15:46→18:18)
--- NOTE | 2017-09-01 16:04 | ER Physician Documentation ---
DATE OF SERVICE: 09/01/2017 The patient was brought here because of cough and shortness of breath. PRIMARY CARE PHYSICIAN: Dr. Reggie Ann EMERGENCY ROOM PHYSICIAN: Dr. Mode Marina In the previous 277 days, the patient was here for some laceration. CHIEF COMPLAINT: Cough and shortness of breath, difficulty in breathing. According to the nurse, the patient is on 100%, oxygen saturation is close to 95%, blood pressure is 111. According to the nurse, her blood pressure also was lower. The patient is now 100% oxygen nonrebreather mask. HISTORY OF PRESENT ILLNESS: The patient is a very poor historian. She cannot say that she does not know where she is, why she is here. The patient was brought here by some [employer] ambulance. She is a lady. The person to notify in case of emergency is Violeta [place] [address], home phone number is [phone]. Next of kin is same number, but work phone number is [phone], all are the same. The patient has Medicare part A and B as well as Medicare. She cannot answer any other questions. REVIEW OF SYSTEMS: Cannot be obtained from the patient. I do not see any surgical scars, do not see any pacemaker. From looking at her, there is no gross evidence of congestive heart failure. Neck veins are not distended. No edema over the legs, no cyanosis, no petechia, no ecchymosis. Chest shows bilateral scattered rales and rhonchi. Decreased air entry in both lungs. AP diameter of the chest is slightly increased, emphysematous looking chest wall. The patient denied ever smoking at least that smoking or drinking or taking any weeds or marijuana. Abdomen is soft, benign and negative. Liver, spleen not enlarged. No free fluid in the abdominal cavity. Central nervous system, the patient is confused. It looks like she has dementia. The patient does not know where she is and she cannot give any complaint and no history of anything has come, but since Dr. Ann knows her very well and pretty sure that he will add to history, physical in the hospital dictation. The patient looks like demented, but moves all the extremities. Costovertebral angles are normal and the patient does not have any evidence of cancer, tumors or masses. CLINICAL IMPRESSION: The patient has evidence of acute bronchitis and I made her cough, she has congested chest. She brings up some white to yellowish phlegm and she was asked to cough twice, she did follow the instructions and she definitely has congestion, most likely from both the lungs. Underlying pneumonia cannot be ruled out. We can get some flu antigen studies on the patient. PLAN: To get the patient antibiotics and get a chest x-ray done and get some labs workup done and I believe the patient would need admission to the hospital. We will call Dr. Ann for admission. JOB# [id number]
[2017-09-01 16:23] LABS: BAND NEUTROPHILE 6 % (0-10); BASOPHIL 0 % (0-3); EOSINOPHIL 0 % (0-5); LYMPHOCYTE 4 % (20-50); MONOCYTE 4 % (2-10); NEUTROPHILS 86 % (40-80); PLATELET ESTIMATE ADEQUATE (NORMAL); PLATELET MORPHOLOGY NORMAL (NORMAL); TOTAL CELLS COUNTED 100
--- NOTE | 2017-09-01 16:28 | History & Physical ---
ADMIT DATE: 09/01/2017 CHIEF COMPLAINT: Low oxygen saturation. HISTORY OF PRESENT ILLNESS: This is a 72-year-old female with history of osteoarthritis, osteoporosis, dementia, and psych disorder, was admitted for nursing facility secondary to low O2 saturations in the 80s. The patient ____ have been altered, not answering questions, 911 was called and the patient was brought into the ER and noted to have elevated white count to 1000. The patient is congested and coughing. The patient is a poor historian. PAST MEDICAL HISTORY: As mentioned in history present illness. PAST SURGICAL HISTORY: Unable to obtain from the patient. ALLERGIES: No known drug allergies. MEDICATIONS: Tylenol, Celexa, clonidine, Advair, guaifenesin, Namenda, and Zyprexa. FAMILY HISTORY: Noncontributory. SOCIAL HISTORY: The patient is a correction patient requiring 24-hour total care. REVIEW OF SYSTEMS: This is limited secondary to the patient's current mental state. We will try to obtain more detailed review of systems at a later date by talking to family members. There is Mona Urbina, family member, , also try to get information from nursing staff at [facility], . PHYSICAL EXAMINATION: VITAL SIGNS: Blood pressure 111/51, respirations 22, pulse 78, temperature 97.5. GENERAL: Elderly female, appears her stated age, appears chronically ill. NECK: Supple. No mass. LUNGS: Equal breath sounds, few rhonchi. HEART: Regular rate and rhythm with systolic ejection murmur. ABDOMEN: Soft, globular. EXTREMITIES: Positive excoriation and atrophy. LABORATORY DATA: WBC 21, hemoglobin 11, and platelets 471. Sodium 133, potassium 3.8, BUN 22, creatinine 0.7, glucose 114, magnesium 1.8. ASSESSMENT AND PLAN: Fever, sepsis, acute respiratory failure, possible pneumonia, acute asthma exacerbation, leukocytosis, osteoarthritis, osteoporosis, dementia, low magnesium, hyponatremia. We will correct electrolyte abnormalities. We will review the patient's chest x-ray. We will ____ continue IV hydration, continue IV antibiotic, and bronchodilator treatments. We will continue to monitor the patient closely. We will admit the patient to telemetry. JOB# [id number]
[2017-09-01] MEDS: D5-0.9%NS 1,000 ML IV SCH (16:47)
[2017-09-01] MEDS ORDERED: Non-Formulary Item 1 EA (Fluticasone/Salmeterol [Advair 250-50 Diskus] 1 PUFF) INH SCH (17:00)
[2017-09-01] MEDS ORDERED: Albuterol Nebulizer 2.5mg/3mL HHN ONE (20:37)
[2017-09-01] MEDS ORDERED: Ipratropium Neb 0.5 mg/2.5 mL UD HHN ONE (20:37)
[2017-09-01] MEDS: Ipratropium Neb 0.5 mg/2.5 mL UD IH SCH (22:30)
[2017-09-01] MEDS: Albuterol Nebulizer 2.5mg/3mL HHN SCH (22:30)
[2017-09-01 23:57] VITALS: BP 131/66
[2017-09-02 05:21] LABS: HEMATOCRIT 33.1 % (41.0-60); HEMOGLOBIN 11.1 gm/dL (12-16); MANUAL DIFF REQUIRED? YES; MEAN CELL VOLUME 89.5 fl (81-100); MEAN CORPUSCULAR HEMOGLOBIN 30.1 pg (27.0-31.0); MEAN CORPUSCULAR HGB CONC 33.7 pg (28.0-36.0); MEAN PLATELET VOLUME 6.7 fl; PLATELET COUNT 454 Th/cmm (150-400); RED CELL DISTRIBUTION WIDTH 13.3 % (11.5-20.0)
[2017-09-02 05:31] LABS: WHITE BLOOD COUNT 29.3 Th/cmm (4.8-10.8)
[2017-09-02 05:43] LABS: ALB/GLOB RATIO 0.8 (1.0-1.8); ALBUMIN 2.8 gm/dL (3.7-5.3); ALKALINE PHOSPHATASE 98 U/L (34-104); ANION GAP 8.8 (7.0-16.0); BILIRUBIN,TOTAL 0.4 mg/dL (0.3-1.0); BUN - UREA NITROGEN 23 mg/dL (7-25); CALCIUM SERUM 8.8 mg/dL (8.6-10.3); CARBON DIOXIDE 29.4 mEq/L (21.0-31.0); CHLORIDE 102 mEq/L (98-107); CREATININE - SERUM 0.7 mg/dL (0.6-1.2); GLUCOSE 153 mg/dL (70-105); MAGNESIUM 2.3 mg/dL (1.9-2.7); POTASSIUM SERUM 4.2 mEq/L (3.5-5.1); SGOT 21 U/L (13-39); SGPT/ALT 14 U/L (7-52); SODIUM SERUM 136 mEq/L (136-145); TOTAL PROTEIN,SERUM 6.2 gm/dL (6.0-8.3)
[2017-09-02 06:15] LABS: NEUTROPHILS 84 % (40-80); TOTAL CELLS COUNTED 100
[2017-09-02 06:16] LABS: BAND NEUTROPHILE 9 % (0-10); LYMPHOCYTE 2 % (20-50); MONOCYTE 5 % (2-10)
[2017-09-02] MEDS: Ipratropium Neb 0.5 mg/2.5 mL UD IH SCH ×3 (07:04→19:29)
[2017-09-02] MEDS: Albuterol Nebulizer 2.5mg/3mL HHN SCH ×3 (07:04→19:29)
--- NOTE | 2017-09-02 08:31 | Diagnostic Imaging Report ---
CHEST X-RAY: AP view INDICATION: Pneumonia COMPARISON: 09/01/2017 FINDINGS: Congestive changes seen with small right effusion and right basal infiltrates. Mild cardiomegaly is noted. IMPRESSION: Congestive changes with small right effusion and right basal infiltrates.
[2017-09-02] MEDS: Multivitamin w/ Minerals Tab PO SCH (08:55)
[2017-09-02] MEDS: D5-0.9%NS 1,000 ML IV SCH (12:21)
[2017-09-02] MEDS: D5-0.45NS 1,000 ML IV SCH (13:57)
--- NOTE | 2017-09-02 14:07 | Diagnostic Imaging Report ---
CT Chest without contrast HISTORY: Pneumonia COMPARISON: Chest x-ray 09/02/2017. Technique: Axial images were obtained from the base of the neck to the upper abdomen without IV contrast. Reconstructions were made. Total DLP 375 CTD I 19.4 Findings: Evaluation of the mediastinum is limited due to lack of IV contrast. No evidence of mediastinal lymphadenopathy. That ascending aorta measures up to 3.7 cm. Tortuous aorta is noted. [id number]-[id number] atherosclerosis noted. No pericardial effusion. Heart size is normal. The Lung conti demonstrate atelectatic and hypoventilatory changes with multifocal pulmonary infiltrates and bibasal consolidation. Small bilateral pleural effusions are noted. The upper abdomen demonstrates nonspecific bilateral perinephric inflammatory changes. The pancreatic gland atrophy is noted. Postsurgical changes of the upper abdomen are noted. Diverticulosis is noted. Advanced degenerative changes of the spine are noted with scoliosis IMPRESSION: Multifocal pulmonary infiltrates and bibasal consolidative changes and small bilateral effusions. Findings may be due to pneumonia and/or CHF. Mild to moderate atherosclerotic vascular disease. Nonspecific bilateral perinephric inflammatory changes Diverticulosis.
--- NOTE | 2017-09-02 15:56 | Internal Medicine Prog Note ---
Internal Medicine Subjective - Subjective Service Date: 09/02/17 (on venti mask noted with expiratory and inspiratory wheezes ) Patient seen and examined:: with staff Patient is:: awake, verbal Patient Complaints of:: congestion, cough Per staff patient has:: tolerating meds Internal Medicine Objective - Results Result Diagrams: 09/02/17 05:00 09/02/17 05:00 Recent Labs: Laboratory Last Values WBC 29.3 Th/cmm (4.8-10.8) H* 09/02/17 05:00 RBC 3.70 Mil/cmm (3.80-5.20) L 09/02/17 05:00 Hgb 11.1 gm/dL (12-16) L 09/02/17 05:00 Hct 33.1 % (41.0-60) L 09/02/17 05:00 MCV 89.5 fl (81-100) 09/02/17 05:00 MCH 30.1 pg (27.0-31.0) 09/02/17 05:00 MCHC Differential 33.7 pg (28.0-36.0) 09/02/17 05:00 RDW 13.3 % (11.5-20.0) 09/02/17 05:00 Plt Count 454 Th/cmm (150-400) H 09/02/17 05:00 MPV 6.7 fl 09/02/17 05:00 Band Neutrophils % 9 % (0-10) 09/02/17 05:00 Neutrophils (Manual) 84 % (40-80) H 09/02/17 05:00 Lymphocytes 2 % (20-50) L 09/02/17 05:00 Monocytes 5 % (2-10) 09/02/17 05:00 Eosinophils 0 % (0-5) 09/01/17 14:00 Basophils 0 % (0-3) 09/01/17 14:00 Platelet Estimate ADEQUATE (NORMAL) 09/01/17 14:00 Platelet Morphology NORMAL (NORMAL) 09/01/17 14:00 RBC Morph Micro Appear NORMAL (NORMAL) 09/01/17 14:00 Sodium 136 mEq/L (136-145) 09/02/17 05:00 Potassium 4.2 mEq/L (3.5-5.1) 09/02/17 05:00 Chloride 102 mEq/L (98-107) 09/02/17 05:00 Carbon Dioxide 29.4 mEq/L (21.0-31.0) 09/02/17 05:00 Anion Gap 8.8 (7.0-16.0) 09/02/17 05:00 BUN 23 mg/dL (7-25) 09/02/17 05:00 Creatinine 0.7 mg/dL (0.6-1.2) 09/02/17 05:00 Est GFR ( Amer) TNP 09/02/17 05:00 Est GFR (Non-Af Amer) TNP 09/02/17 05:00 BUN/Creatinine Ratio 32.9 09/02/17 05:00 Glucose 153 mg/dL (70-105) H 09/02/17 05:00 Whole Bld Lactic Acid 0.66 mmol/L (0.60-1.99) 09/01/17 14:00 Calcium 8.8 mg/dL (8.6-10.3) 09/02/17 05:00 Magnesium 2.3 mg/dL (1.9-2.7) 09/02/17 05:00 Total Bilirubin 0.4 mg/dL (0.3-1.0) 09/02/17 05:00 AST 21 U/L (13-39) 09/02/17 05:00 ALT 14 U/L (7-52) 09/02/17 05:00 Alkaline Phosphatase 98 U/L (34-104) 09/02/17 05:00 Ammonia 51 umol/L (16-53) 09/02/17 05:00 Troponin I 0.02 ng/mL (0.01-0.05) 09/01/17 14:00 C-Reactive Protein 39.6 mg/dL (0.0-0.9) H 09/01/17 14:00 B-Natriuretic Peptide 167.0 pg/mL (5.0-100.0) H 09/01/17 14:00 Total Protein 6.2 gm/dL (6.0-8.3) 09/02/17 05:00 Albumin 2.8 gm/dL (3.7-5.3) L 09/02/17 05:00 Globulin 3.4 gm/dL 09/02/17 05:00 Albumin/Globulin Ratio 0.8 (1.0-1.8) L 09/02/17 05:00 TSH 0.11 uIU/ml (0.34-5.60) L 09/02/17 05:00 - Physical Exam Vitals and I&O: Vital Signs Temp 96.8 F 09/02/17 12:00 Pulse 88 09/02/17 12:09 Resp 22 09/02/17 12:09 BP 94/59 09/02/17 12:00 Pulse Ox 93 09/02/17 12:09 Intake & Output 09/01/17 09/02/17 09/02/17 18:59 06:59 18:59 Intake Total 1000 Balance 1000 Weight (lbs) 140 lb Intake: Intake, IV Amount 1000 D5-0.9%Ns 1,000 ml @ 80 1000 mls/hr IV .[id number] [facility] Rx #:[id number] Other: # Voids 2 # Bowel Movements 0 Active Medications: Current Medications Acetaminophen (Tylenol) 650 mg PO Q4H PRN PRN Reason: Pain Or Fever above 101 Stop: 10/31/17 15:34 Albuterol Sulfate (Albuterol 2.5mg/3ml Neb Ud) 2.5 mg HHN Q4HRT PRN PRN Reason: sob Stop: 10/31/17 15:27 Albuterol Sulfate (Albuterol 2.5mg/3ml Neb Ud) 2.5 mg HHN QIDRT [facility] Stop: 10/31/17 18:59 Last Admin: 09/02/17 11:43 Dose: 2.5 mg Aspirin (Ecotrin) 81 mg PO DAILY [facility] Stop: 11/01/17 08:59 Last Admin: 09/02/17 08:54 Dose: 81 mg Citalopram Hydrobromide (Celexa) 20 mg PO DAILY [facility] PRN Reason: Protocol Stop: 11/01/17 08:59 Donepezil HCl (Aricept) 10 mg PO HS [facility] Stop: 10/31/17 20:59 Last Admin: 09/01/17 22:04 Dose: 10 mg Cefepime HCl 1 gm/ Dextrose 50 mls @ 100 mls/hr IV Q12H [facility] Stop: 10/31/17 15:29 Last Admin: 09/02/17 02:40 Dose: 100 mls/hr Dextrose/Sodium Chloride (D5-0.45ns) 1,000 mls @ 60 mls/hr IV .[id number] [facility] Stop: 11/01/17 13:14 Last Admin: 09/02/17 13:57 Dose: 60 mls/hr Vancomycin HCl 1 gm/ Sodium (Chloride) 250 mls @ 165 mls/hr IV Q24HR@0900 [facility] Stop: 11/01/17 14:59 Last Admin: 09/02/17 15:02 Dose: 165 mls/hr Ipratropium [place] (Atrovent Neb 0.5mg/2.5ml) 0.5 mg IH QIDRT [facility] Stop: 10/31/17 18:59 Last Admin: 09/02/17 11:43 Dose: 0.5 mg Memantine (Namenda) 10 mg PO DAILY [facility] Stop: 11/01/17 08:59 Last Admin: 09/02/17 08:54 Dose: 10 mg Miscellaneous (Fluticasone/Salmeterol [Advair 250-50 Diskus]) 1 puff INH BID [facility] Stop: 10/31/17 16:59 Miscellaneous (Vancomycin Iv Per Pharmacy) 1 ea MC PRN [facility] Stop: 10/31/17 15:44 Nitroglycerin (Nitrostat) 0.4 mg SL Q5MIN PRN PRN Reason: Chest Pain Stop: 10/31/17 15:34 Olanzapine (Zyprexa) 2.4 mg PO HS [facility] PRN Reason: Protocol Stop: 10/31/17 20:59 General: weak, alert HEENT: NC/AT, PERRLA Lungs: wheezing Cardiovascular: RRR, without murmur Abdomen: soft, non-tender, non-distended, positive bowel sound Neurological: muscle weakness Internal Medicine Assmt/Plan - Assessment Assessment: fever sepsis acute respiratory failure pna acute asthma exacerbation leukocytosis oa osteoporosis dementia low magnesium hyponatremia - Plan Plan: continue with iv solumedrol inhalation treatments supplemental oxygen empiric iv antibiotics follow up labs in am continue current plan of care
[2017-09-03 05:40] LABS: MANUAL DIFF REQUIRED? YES
[2017-09-03 05:43] LABS: HEMATOCRIT 34.1 % (41.0-60); HEMOGLOBIN 11.9 gm/dL (12-16); LYMPHOCYTE ABSOLUTE 0.4 Th/cmm (1.5-3.0); MEAN CELL VOLUME 87.4 fl (81-100); MEAN CORPUSCULAR HEMOGLOBIN 30.4 pg (27.0-31.0); MEAN CORPUSCULAR HGB CONC 34.8 pg (28.0-36.0); MONOCYTE ABSOLUTE 0.3 Th/cmm (0.3-1.0); NEUTROPHILE ABSOLUTE 21.9 Th/cmm (1.8-8.0); PLATELET COUNT 455 Th/cmm (150-400); RED CELL DISTRIBUTION WIDTH 13.9 % (11.5-20.0)
[2017-09-03 05:46] LABS: WHITE BLOOD COUNT 22.6 Th/cmm (4.8-10.8)
[2017-09-03 05:50] LABS: ANION GAP 7.3 (7.0-16.0); BUN - UREA NITROGEN 22 mg/dL (7-25); CALCIUM SERUM 9.3 mg/dL (8.6-10.3); CARBON DIOXIDE 29.1 mEq/L (21.0-31.0); CHLORIDE 105 mEq/L (98-107); CREATININE - SERUM 0.7 mg/dL (0.6-1.2); GLUCOSE 248 mg/dL (70-105); MAGNESIUM 2.3 mg/dL (1.9-2.7); POTASSIUM SERUM 4.4 mEq/L (3.5-5.1); SODIUM SERUM 137 mEq/L (136-145)
[2017-09-03 06:00] LABS: TOTAL CELLS COUNTED 100
[2017-09-03 06:01] LABS: BAND NEUTROPHILE 11 % (0-10); LYMPHOCYTE 2 % (20-50); MONOCYTE 1 % (2-10); NEUTROPHILS 86 % (40-80)
[2017-09-03] MEDS: Albuterol Nebulizer 2.5mg/3mL HHN SCH ×4 (06:47→21:04)
[2017-09-03] MEDS: Ipratropium Neb 0.5 mg/2.5 mL UD IH SCH ×4 (06:47→21:03)
[2017-09-03] MEDS: Multivitamin w/ Minerals Tab PO SCH (09:36)
[2017-09-03 13:35] LABS: A1C % 6.8 % (4.0-6.0)
--- NOTE | 2017-09-03 13:58 | Internal Medicine Prog Note ---
Internal Medicine Subjective - Subjective Service Date: 09/03/17 Patient is:: awake, verbal Patient Complaints of:: congestion, cough Per staff patient has:: tolerating meds Internal Medicine Objective - Results Result Diagrams: 09/03/17 05:30 09/03/17 05:30 Recent Labs: Laboratory Last Values WBC 22.6 Th/cmm (4.8-10.8) H* 09/03/17 05:30 RBC 3.90 Mil/cmm (3.80-5.20) 09/03/17 05:30 Hgb 11.9 gm/dL (12-16) L 09/03/17 05:30 Hct 34.1 % (41.0-60) L 09/03/17 05:30 MCV 87.4 fl (81-100) 09/03/17 05:30 MCH 30.4 pg (27.0-31.0) 09/03/17 05:30 MCHC Differential 34.8 pg (28.0-36.0) 09/03/17 05:30 RDW 13.9 % (11.5-20.0) 09/03/17 05:30 Plt Count 455 Th/cmm (150-400) H 09/03/17 05:30 MPV 7.0 fl 09/03/17 05:30 Band Neutrophils % 11 % (0-10) H 09/03/17 05:30 Lymphocytes % POST FORM REMOVER 09/03/17 05:30 Monocytes % POST [employer]M REMOVER 09/03/17 05:30 Eosinophils % POST [employer]M REMOVER 09/03/17 05:30 Neutrophils (Manual) 86 % (40-80) H 09/03/17 05:30 Lymphocytes 2 % (20-50) L 09/03/17 05:30 Monocytes 1 % (2-10) L 09/03/17 05:30 Eosinophils 0 % (0-5) 09/01/17 14:00 Basophils 0 % (0-3) 09/01/17 14:00 Platelet Estimate ADEQUATE (NORMAL) 09/01/17 14:00 Platelet Morphology NORMAL (NORMAL) 09/01/17 14:00 RBC Morph Micro Appear NORMAL (NORMAL) 09/01/17 14:00 Sodium 137 mEq/L (136-145) 09/03/17 05:30 Potassium 4.4 mEq/L (3.5-5.1) 09/03/17 05:30 Chloride 105 mEq/L (98-107) 09/03/17 05:30 Carbon Dioxide 29.1 mEq/L (21.0-31.0) 09/03/17 05:30 Anion Gap 7.3 (7.0-16.0) 09/03/17 05:30 BUN 22 mg/dL (7-25) 09/03/17 05:30 Creatinine 0.7 mg/dL (0.6-1.2) 09/03/17 05:30 Est GFR ( Amer) TNP 09/03/17 05:30 Est GFR (Non-Af Amer) TNP 09/03/17 05:30 BUN/Creatinine Ratio 31.4 09/03/17 05:30 Glucose 248 mg/dL (70-105) H 09/03/17 05:30 Hemoglobin A1c % 6.8 % (4.0-6.0) H 09/03/17 05:30 Whole Bld Lactic Acid 0.66 mmol/L (0.60-1.99) 09/01/17 14:00 Calcium 9.3 mg/dL (8.6-10.3) 09/03/17 05:30 Magnesium 2.3 mg/dL (1.9-2.7) 09/03/17 05:30 Total Bilirubin 0.4 mg/dL (0.3-1.0) 09/02/17 05:00 AST 21 U/L (13-39) 09/02/17 05:00 ALT 14 U/L (7-52) 09/02/17 05:00 Alkaline Phosphatase 98 U/L (34-104) 09/02/17 05:00 Ammonia 64 umol/L (16-53) H 09/03/17 05:30 Troponin I 0.02 ng/mL (0.01-0.05) 09/01/17 14:00 C-Reactive Protein 39.6 mg/dL (0.0-0.9) H 09/01/17 14:00 B-Natriuretic Peptide 271.0 pg/mL (5.0-100.0) H 09/03/17 05:30 Total Protein 6.2 gm/dL (6.0-8.3) 09/02/17 05:00 Albumin 2.8 gm/dL (3.7-5.3) L 09/02/17 05:00 Globulin 3.4 gm/dL 09/02/17 05:00 Albumin/Globulin Ratio 0.8 (1.0-1.8) L 09/02/17 05:00 TSH 0.11 uIU/ml (0.34-5.60) L 09/02/17 05:00 Vancomycin Trough 7.6 ug/mL (10-20) L 09/03/17 08:08 - Physical Exam Vitals and I&O: Vital Signs Temp 97.8 F 09/03/17 12:01 Pulse 100 09/03/17 12:01 Resp 18 09/03/17 12:01 BP 159/82 09/03/17 12:01 Pulse Ox 94 09/03/17 12:01 Intake & Output 09/02/17 09/03/17 09/03/17 18:59 06:59 18:59 Intake Total 300 Balance 300 Weight (lbs) 152 lb 150 lb 3.2 oz Intake: Intake, IV Amount 300 Cefepime 1 gm In Dextrose 50 5% 50 ml @ 100 mls/hr IV Q12H [facility] Rx#:[id number] Vancomycin HCl 1 gm In 250 Sodium Chloride 0.9% 250 ml @ 165 mls/hr IV Q24HR@ 0900 [facility] Rx#:[id number] Other: # Voids 3 3 # Bowel Movements 0 Active Medications: Current Medications Acetaminophen (Tylenol) 650 mg PO Q4H PRN PRN Reason: Pain Or Fever above 101 Stop: 10/31/17 15:34 Albuterol Sulfate (Albuterol 2.5mg/3ml Neb Ud) 2.5 mg HHN Q4HRT PRN PRN Reason: sob Stop: 10/31/17 15:27 Last Admin: 09/03/17 01:21 Dose: 2.5 mg Albuterol Sulfate (Albuterol 2.5mg/3ml Neb Ud) 2.5 mg HHN QIDRT [facility] Stop: 10/31/17 18:59 Last Admin: 09/03/17 11:32 Dose: 2.5 mg Aspirin (Ecotrin) 81 mg PO DAILY [facility] Stop: 11/01/17 08:59 Last Admin: 09/03/17 09:37 Dose: 81 mg Citalopram Hydrobromide (Celexa) 20 mg PO DAILY [facility] PRN Reason: Protocol Stop: 11/01/17 08:59 Donepezil HCl (Aricept) 10 mg PO HS [facility] Stop: 10/31/17 20:59 Last Admin: 09/02/17 20:15 Dose: 10 mg Cefepime HCl 1 gm/ Dextrose 50 mls @ 100 mls/hr IV Q12H [facility] Stop: 10/31/17 15:29 Last Admin: 09/03/17 02:43 Dose: 100 mls/hr Dextrose/Sodium Chloride (D5-0.45ns) 1,000 mls @ 60 mls/hr IV .[id number] [facility] Stop: 11/01/17 13:14 Last Admin: 09/02/17 13:57 Dose: 60 mls/hr Vancomycin HCl 1 gm/ Sodium (Chloride) 250 mls @ 165 mls/hr IV Q12H [facility] Stop: 11/02/17 20:59 Ipratropium [place] (Atrovent Neb 0.5mg/2.5ml) 0.5 mg IH QIDRT [facility] Stop: 10/31/17 18:59 Last Admin: 09/03/17 11:32 Dose: 0.5 mg Memantine (Namenda) 10 mg PO DAILY [facility] Stop: 11/01/17 08:59 Last Admin: 09/03/17 09:36 Dose: 10 mg Methylprednisolone Sodium Succinate (Solu-Medrol) 80 mg IVP Q12HR [facility] Stop: 11/01/17 20:59 Last Admin: 09/03/17 09:36 Dose: 80 mg Miscellaneous (Fluticasone/Salmeterol [Advair 250-50 Diskus]) 1 puff INH BID [facility] Stop: 10/31/17 16:59 Miscellaneous (Vancomycin Iv Per Pharmacy) 1 ea MC PRN [facility] Stop: 10/31/17 15:44 Nitroglycerin (Nitrostat) 0.4 mg SL Q5MIN PRN PRN Reason: Chest Pain Stop: 10/31/17 15:34 Olanzapine (Zyprexa) 2.4 mg PO HS [facility] PRN Reason: Protocol Stop: 10/31/17 20:59 General: weak, alert HEENT: NC/AT, PERRLA Lungs: wheezing Cardiovascular: RRR, without murmur Abdomen: soft, non-tender, non-distended, positive bowel sound Neurological: muscle weakness Internal Medicine Assmt/Plan - Assessment Assessment: fever sepsis acute respiratory failure pna acute asthma exacerbation leukocytosis oa osteoporosis dementia low magnesium hyponatremia - Plan Plan: continue with iv solumedrol inhalation treatments supplemental oxygen empiric iv antibiotics follow up labs in am continue current plan of care
[2017-09-03] MEDS: D5-0.45NS 1,000 ML IV SCH (15:31)
[2017-09-04] MEDS: Albuterol Nebulizer 2.5mg/3mL HHN SCH ×4 (07:09→19:46)
[2017-09-04] MEDS: Ipratropium Neb 0.5 mg/2.5 mL UD IH SCH ×4 (07:10→19:46)
[2017-09-04 08:11] LABS: HEMATOCRIT 33.1 % (41.0-60); HEMOGLOBIN 11.2 gm/dL (12-16); LYMPHOCYTE ABSOLUTE 0.5 Th/cmm (1.5-3.0); MANUAL DIFF REQUIRED? YES; MEAN CORPUSCULAR HEMOGLOBIN 30.4 pg (27.0-31.0); MEAN CORPUSCULAR HGB CONC 33.8 pg (28.0-36.0); MEAN PLATELET VOLUME 6.6 fl; MONOCYTE ABSOLUTE 0.5 Th/cmm (0.3-1.0); NEUTROPHILE ABSOLUTE 17.7 Th/cmm (1.8-8.0); RED BLOOD COUNT 3.67 Mil/cmm (3.80-5.20); RED CELL DISTRIBUTION WIDTH 13.3 % (11.5-20.0)
[2017-09-04 08:15] LABS: PLATELET COUNT 590 Th/cmm (150-400); WHITE BLOOD COUNT 18.7 Th/cmm (4.8-10.8)
[2017-09-04 08:33] LABS: ANION GAP 6.2 (7.0-16.0); BUN - UREA NITROGEN 27 mg/dL (7-25); CALCIUM SERUM 9.7 mg/dL (8.6-10.3); CARBON DIOXIDE 30.8 mEq/L (21.0-31.0); CHLORIDE 106 mEq/L (98-107); CREATININE - SERUM 0.6 mg/dL (0.6-1.2); GLUCOSE 182 mg/dL (70-105); MAGNESIUM 1.9 mg/dL (1.9-2.7); SODIUM SERUM 139 mEq/L (136-145)
[2017-09-04] MEDS: Multivitamin w/ Minerals Tab PO SCH (09:39)
[2017-09-04 09:52] LABS: BAND NEUTROPHILE 2 % (0-10); LYMPHOCYTE 2 % (20-50); MONOCYTE 1 % (2-10); NEUTROPHILS 95 % (40-80); PLATELET ESTIMATE INCREASED PLATELETS (NORMAL); TOTAL CELLS COUNTED 100
[2017-09-05 06:11] LABS: HEMATOCRIT 32.2 % (41.0-60); HEMOGLOBIN 11.2 gm/dL (12-16); LYMPHOCYTE ABSOLUTE 0.6 Th/cmm (1.5-3.0); MEAN CORPUSCULAR HEMOGLOBIN 31.5 pg (27.0-31.0); MEAN CORPUSCULAR HGB CONC 34.6 pg (28.0-36.0); MEAN PLATELET VOLUME 6.8 fl; MONOCYTE ABSOLUTE 0.4 Th/cmm (0.3-1.0); NEUTROPHILE ABSOLUTE 12.3 Th/cmm (1.8-8.0); PLATELET COUNT 587 Th/cmm (150-400); RED BLOOD COUNT 3.54 Mil/cmm (3.80-5.20); RED CELL DISTRIBUTION WIDTH 13.5 % (11.5-20.0)
[2017-09-05 06:16] LABS: WHITE BLOOD COUNT 13.3 Th/cmm (4.8-10.8)
[2017-09-05 06:39] LABS: ALB/GLOB RATIO 0.8 (1.0-1.8); ALBUMIN 2.8 gm/dL (3.7-5.3); ALKALINE PHOSPHATASE 94 U/L (34-104); ANION GAP 8.4 (7.0-16.0); BILIRUBIN,TOTAL 0.3 mg/dL (0.3-1.0); BUN - UREA NITROGEN 33 mg/dL (7-25); CALCIUM SERUM 9.5 mg/dL (8.6-10.3); CARBON DIOXIDE 28.7 mEq/L (21.0-31.0); CHLORIDE 106 mEq/L (98-107); CREATININE - SERUM 0.6 mg/dL (0.6-1.2); GLUCOSE 180 mg/dL (70-105); MAGNESIUM 1.9 mg/dL (1.9-2.7); POTASSIUM SERUM 4.1 mEq/L (3.5-5.1); SGOT 29 U/L (13-39); SGPT/ALT 27 U/L (7-52); SODIUM SERUM 139 mEq/L (136-145); TOTAL PROTEIN,SERUM 6.2 gm/dL (6.0-8.3)
[2017-09-05] MEDS: Albuterol Nebulizer 2.5mg/3mL HHN SCH ×4 (07:43→19:01)
[2017-09-05] MEDS: Ipratropium Neb 0.5 mg/2.5 mL UD IH SCH ×4 (07:43→19:01)
[2017-09-05] MEDS: Multivitamin w/ Minerals Tab PO SCH (08:35)
[2017-09-05 11:05] LABS: FOLIC ACID 17.1 ng/mL (>3.0)
[2017-09-05 11:05] LABS: FOLIC ACID 13.5 ng/mL (>3.0)
--- NOTE | 2017-09-05 14:38 | Internal Medicine Prog Note ---
Internal Medicine Subjective - Subjective Service Date: 09/05/17 Patient is:: awake, verbal Patient Complaints of:: congestion, cough Per staff patient has:: tolerating meds Internal Medicine Objective - Results Result Diagrams: 09/05/17 06:00 09/05/17 06:00 Recent Labs: Laboratory Last Values WBC 13.3 Th/cmm (4.8-10.8) H D 09/05/17 06:00 RBC 3.54 Mil/cmm (3.80-5.20) L 09/05/17 06:00 Hgb 11.2 gm/dL (12-16) L 09/05/17 06:00 Hct 32.2 % (41.0-60) L 09/05/17 06:00 MCV 91.0 fl (81-100) 09/05/17 06:00 MCH 31.5 pg (27.0-31.0) H 09/05/17 06:00 MCHC Differential 34.6 pg (28.0-36.0) 09/05/17 06:00 RDW 13.5 % (11.5-20.0) 09/05/17 06:00 Plt Count 587 Th/cmm (150-400) H 09/05/17 06:00 MPV 6.8 fl 09/05/17 06:00 Band Neutrophils % 2 % (0-10) 09/04/17 08:00 Lymphocytes % MERCHANDISE PLANNING MANAGER 09/03/17 05:30 Monocytes % MERCHANDISE PLANNING MANAGER 09/03/17 05:30 Eosinophils % MERCHANDISE PLANNING MANAGER 09/03/17 05:30 Neutrophils (Manual) 95 % (40-80) H 09/04/17 08:00 Lymphocytes 2 % (20-50) L 09/04/17 08:00 Monocytes 1 % (2-10) L 09/04/17 08:00 Eosinophils 0 % (0-5) 09/01/17 14:00 Basophils 0 % (0-3) 09/01/17 14:00 Platelet Estimate INCREASED PLATELETS (NORMAL) 09/04/17 08:00 Platelet Morphology NORMAL (NORMAL) 09/01/17 14:00 RBC Morph Micro Appear NORMAL (NORMAL) 09/01/17 14:00 Sodium 139 mEq/L (136-145) 09/05/17 06:00 Potassium 4.1 mEq/L (3.5-5.1) 09/05/17 06:00 Chloride 106 mEq/L (98-107) 09/05/17 06:00 Carbon Dioxide 28.7 mEq/L (21.0-31.0) 09/05/17 06:00 Anion Gap 8.4 (7.0-16.0) 09/05/17 06:00 BUN 33 mg/dL (7-25) H 09/05/17 06:00 Creatinine 0.6 mg/dL (0.6-1.2) 09/05/17 06:00 Est GFR ( Amer) TNP 09/05/17 06:00 Est GFR (Non-Af Amer) TNP 09/05/17 06:00 BUN/Creatinine Ratio 55.0 09/05/17 06:00 Glucose 180 mg/dL (70-105) H 09/05/17 06:00 Hemoglobin A1c % 6.8 % (4.0-6.0) H 09/03/17 05:30 Whole Bld Lactic Acid 0.66 mmol/L (0.60-1.99) 09/01/17 14:00 Calcium 9.5 mg/dL (8.6-10.3) 09/05/17 06:00 Magnesium 1.9 mg/dL (1.9-2.7) 09/05/17 06:00 Total Bilirubin 0.3 mg/dL (0.3-1.0) 09/05/17 06:00 AST 29 U/L (13-39) 09/05/17 06:00 ALT 27 U/L (7-52) 09/05/17 06:00 Alkaline Phosphatase 94 U/L (34-104) 09/05/17 06:00 Ammonia 64 umol/L (16-53) H 09/03/17 05:30 Troponin I 0.02 ng/mL (0.01-0.05) 09/01/17 14:00 C-Reactive Protein 39.6 mg/dL (0.0-0.9) H 09/01/17 14:00 B-Natriuretic Peptide 271.0 pg/mL (5.0-100.0) H 09/03/17 05:30 Total Protein 6.2 gm/dL (6.0-8.3) 09/05/17 06:00 Albumin 2.8 gm/dL (3.7-5.3) L 09/05/17 06:00 Globulin 3.4 gm/dL 09/05/17 06:00 Albumin/Globulin Ratio 0.8 (1.0-1.8) L 09/05/17 06:00 Vitamin B12 921 09/03/17 05:30 Folic Acid 13.5 ng/mL (>3.0) 09/03/17 05:30 TSH 0.11 uIU/ml (0.34-5.60) L 09/02/17 05:00 Vancomycin Trough 14.1 ug/mL (10-20) 09/04/17 08:00 - Physical Exam Vitals and I&O: Vital Signs Temp 98 F 09/05/17 12:00 Pulse 88 09/05/17 12:00 Resp 20 09/05/17 12:00 BP 134/75 09/05/17 12:00 Pulse Ox 100 09/05/17 12:00 Intake & Output 09/04/17 09/05/17 09/05/17 18:59 06:59 18:59 Intake Total 250 300 50 Balance 250 300 50 Weight (lbs) 150 lb Intake: Intake, IV Amount 250 300 Cefepime 1 gm In Dextrose 50 5% 50 ml @ 100 mls/hr IV Q12H [facility] Rx#:[id number] Vancomycin HCl 1 gm In 250 250 Sodium Chloride 0.9% 250 ml @ 165 mls/hr IV Q12H [facility] Rx#:[id number] Oral 50 Other: # Voids 3 # Bowel Movements 1 Active Medications: Current Medications Acetaminophen (Tylenol) 650 mg PO Q4H PRN PRN Reason: Pain Or Fever above 101 Stop: 10/31/17 15:34 Albuterol Sulfate (Albuterol 2.5mg/3ml Neb Ud) 2.5 mg HHN Q4HRT PRN PRN Reason: sob Stop: 10/31/17 15:27 Last Admin: 09/03/17 01:21 Dose: 2.5 mg Albuterol Sulfate (Albuterol 2.5mg/3ml Neb Ud) 2.5 mg HHN QIDRT [facility] Stop: 10/31/17 18:59 Last Admin: 09/05/17 11:50 Dose: 2.5 mg Aspirin (Ecotrin) 81 mg PO DAILY [facility] Stop: 11/01/17 08:59 Last Admin: 09/05/17 08:35 Dose: 81 mg Citalopram Hydrobromide (Celexa) 20 mg PO DAILY [facility] PRN Reason: Protocol Stop: 11/01/17 08:59 Last Admin: 09/05/17 08:35 Dose: 20 mg Donepezil HCl (Aricept) 10 mg PO HS [facility] Stop: 10/31/17 20:59 Last Admin: 09/04/17 22:00 Dose: 10 mg Cefepime HCl 1 gm/ Dextrose 50 mls @ 100 mls/hr IV Q12H [facility] Stop: 10/31/17 15:29 Last Admin: 09/05/17 03:15 Dose: 100 mls/hr Dextrose/Sodium Chloride (D5-0.45ns) 1,000 mls @ 60 mls/hr IV .[id number] [facility] Stop: 11/01/17 13:14 Last Admin: 09/03/17 15:31 Dose: 60 mls/hr Vancomycin HCl 1 gm/ Sodium (Chloride) 250 mls @ 165 mls/hr IV Q12H [facility] Stop: 11/02/17 20:59 Last Admin: 09/05/17 08:34 Dose: 165 mls/hr Ipratropium [place] (Atrovent Neb 0.5mg/2.5ml) 0.5 mg IH QIDRT [facility] Stop: 10/31/17 18:59 Last Admin: 09/05/17 11:50 Dose: 0.5 mg Memantine (Namenda) 10 mg PO DAILY [facility] Stop: 11/01/17 08:59 Last Admin: 09/05/17 08:35 Dose: 10 mg Methylprednisolone Sodium Succinate (Solu-Medrol) 80 mg IVP Q12HR [facility] Stop: 11/01/17 20:59 Last Admin: 09/05/17 08:35 Dose: 80 mg Miscellaneous (Vancomycin Iv Per Pharmacy) 1 ea MC PRN [facility] Stop: 10/31/17 15:44 Nitroglycerin (Nitrostat) 0.4 mg SL Q5MIN PRN PRN Reason: Chest Pain Stop: 10/31/17 15:34 Olanzapine (Zyprexa) 2.5 mg PO HS [facility] PRN Reason: Protocol Stop: 10/31/17 20:59 Last Admin: 09/04/17 22:32 Dose: Not Given General: weak, alert HEENT: NC/AT, PERRLA Lungs: wheezing Cardiovascular: RRR, without murmur Abdomen: soft, non-tender, non-distended, positive bowel sound Neurological: muscle weakness Internal Medicine Assmt/Plan - Assessment Assessment: fever sepsis acute respiratory failure pna acute asthma exacerbation leukocytosis oa osteoporosis dementia low magnesium hyponatremia - Plan Plan: continue with iv solumedrol inhalation treatments supplemental oxygen empiric iv antibiotics follow up labs in am continue current plan of care Nutritional Asmnt/Malnutr-PDOC - Dietary Evaluation Malnutrition Findings (Please click <Entered> for more info): Nutritional Asmnt/Malnutrition Start: 09/03/17 16: 20 Text: Status: Complete Freq: Document 09/03/17 16:20 FLETCHER (Rec: 09/03/17 16:31 FLETCHER [email or web address]) Nutritional Asmnt/Malnutrition Patient General Information Nutritional Screening High Risk Diagnosis sepsis, fever Pertinent Medical Hx/Surgical Hx OA, dementia, psychosis, dementia Subjective Information Pt seen sleeping, on mask at the time of visit. Spoke with FISHER MUSSEL, pt consumed 60% of breakfast and lunch today, has no teeth noted, no chewing/ swallowing problem. Current Diet Order/ Nutrition Support mech soft ground Pertinent Medications D5-0.45ns, vancomycin Pertinent Labs 09/03 Na 137, k 4.4, Cl 105, BUN 22, Cr 0.7, Glucose 248, A1c 6.8, Cl 9.3 09/02 glucose 153 Nutritional Hx/Data Height 5 ft 4 in Height (Calculated Centimeters) 162.6 Current Weight (lbs) 150 lb Weight (Calculated Kilograms) 68.0 Weight (Calculated Grams) 31183.9 [place] Body Weight 120 % [place] Body Weight 125 Body Mass Index (BMI) 25.7 Weight Status Overweight GI Symptoms GI Symptoms None Last BM none Difficult in: None Skin Integrity/Comment: pressure area to buttocks, bruise to right distal arm Current %PO Fair (50-74%) Estimated Nutritional Goals BEE in Kcals: Using Current wt Calories/Kcals/Kg 27-32 Kcals Calculated [id number] Protein: Using Current wt Protein g/k-1.2 Protein Calculated 68-82 Fluid: ml [id number] Nutritional Problem 2. Problem Problem increased nutrition needs ( calorie and protein) Etiology increased metabolic demand for healing and increased energy expenditure Signs/Symptoms: sepsis and fever 1. Problem Problem altered nutrition related lab values Etiology endocrine dysfunction Signs/Symptoms: Glucose 153-248, A1c 6.8 Malnutrition Alert Protein-Calorie Malnutrition N/A Is there a minimum of two criteria No selected? Query Text:Check all the applicable criteria. A minimum of two criteria are recommended for diagnosis of either severe or non-severe malnutrition. Intervention/Recommendation Comments 1. Continue with current diet as ordered. 2. Monitor PO intake, wt, labs and skin integrity 3. F/U as moderate risk in 3-5 days, 09/06-09/08, PO check Expected Outcomes/Goals Expected Outcomes/Goals 1. PO intake to meet at least 75% of nutritional needs. 2. Wt stability, skin to remain intact, labs to improve
== END 2017-09-05 19:20 | DRG 871 ==
LOC: ER 12:39 → TELE 19:00
PROVIDERS: ADMIT Internal Medicine; ATTEND Internal Medicine
DX: A41.9 Sepsis, unspecified organism (principal); J96.00 Acute respiratory failure, unspecified whether with hypoxia or hypercapnia; J18.9 Pneumonia, unspecified organism; J45.901 Unspecified asthma with (acute) exacerbation; E87.1 Hypo-osmolality and hyponatremia; M19.90 Unspecified osteoarthritis, unspecified site; M81.0 Age-related osteoporosis without current pathological fracture; F03.90 Unspecified dementia, unspecified severity, without behavioral disturbance, psychotic disturbance, mood disturbance, and anxiety; J20.9 Acute bronchitis, unspecified
CPT/HCPCS: 36415-UA; 71010-TC; 71250-TC; 80048-TC; 80053-TC; 80202-TC; 82140-TC; 82607-90; 82746-90; 83036-90; 83605; 83735-TC; 83880-TC; 84443-TC; 84484-TC; 85007-TC; 85025-TC; 85027-TC; 86141-TC; 87070; 87230-TC; 90779; 93005; 94760; J0692; J0696; J0713; J2930; J3370; J3475; J7030; J7042; J7051; J7613; Z7610